=== PATIENT | female | born 1970 | race African-American/Black ===

== ENCOUNTER 2023-12-26 10:30 | Emergency (ER) | payer SELFPAY ==
[2023-12-26 11:17] LABS: %Basophils 1.3 % (0.0-1.0); %Eosinophils 3.2 % (0.0-10.0); %Lymphocytes 26.4 % (21.0-51.0); Hematocrit 39.8 % (36.0-47.0); Hemoglobin 12.7 g/dL (12.0-16.0); Mean Corpuscular HGB CONC 31.9 g/dL (32.0-36.0); Mean Corpuscular Hemoglobin 28.6 pg (27.0-31.0); Mean Corpuscular Volume 89.6 fL (78.0-98.0); Mean Platelet Volume 9.2 fL (7.4-10.4); Platelet Count 367 10x3/uL (130-400); RBC Distribution Width 15.9 % (11.5-14.5); Red Blood Cell (RBC) Count 4.44 mill/uL (4.20-5.40)
[2023-12-26 11:33] LABS: ALT (SGPT) 33 U/L (8-55); AST (SGOT) 37 U/L (5-34); Albumin 3.4 g/dL (3.5-5.0); Alkaline Phosphatase 91 U/L (40-110); Anion Gap 14 mmol/L (10-20); BUN (Urea Nitrogen) 10 mg/dL (9.8-20.1); Bilirubin, Total 0.2 mg/dL (0.2-1.2); Calc. Creatinine Clearance 0 mL/min (70-130); Calcium 9.4 mg/dL (7.8-10.44); Carbon Dioxide 24 mmol/L (22-29); Chloride 105 mmol/L (98-107); Estimated GFR 105; Glucose 72 mg/dL (70-105); Protein, Total 8.4 g/dL (6.0-8.3); Sodium 139 mmol/L (136-145)
[2023-12-26] MEDS ORDERED: Metoclopramide HCl 10 MG (2 mL) VIAL ONE (11:43)
[2023-12-26] MEDS ORDERED: diphenhydrAMINE 50 MG/ML VIAL ONE (11:43)
[2023-12-26 12:05] LABS: INR-International Normal Ratio 0.8; PTT 34.2 sec (22.9-36.1)
[2023-12-26] MEDS ORDERED: Bacitracin 1 PK ONE (12:55)
== END 2023-12-26 13:10 | disposition home or self-care (01) ==
LOC: ERS 10:30
DX: I62.02 Nontraumatic subacute subdural hemorrhage (principal); R03.0 Elevated blood-pressure reading, without diagnosis of hypertension
CPT/HCPCS: 70450; 80053; 85025; 85610; 85730; 93005; 96374; 96375; J1200; J2765